=== PATIENT | male | born 1970 | race Caucasian/White ===

== ENCOUNTER 2016-10-31 05:31 | Observation (INO) | payer BC ==
--- NOTE | 2016-10-27 13:54 | Pre-Procedure Note/Attestation ---
Pre-Procedure Note/Attestation Complete Prior to Procedure Planned Procedure: not applicable Procedure Narrative: 1. uvulopalatopharyngoplasty 2. Partial reduction base of tongue Indications for Procedure Pre-Operative Diagnosis: Sleep apnea-unable to tolerate CPAP Attestation I attest that I discussed the nature of the procedure; its benefits; risks and complications; and alternatives (and the risks and benefits of such alternatives ), prior to the procedure, with the patient (or the patient's legal appliance service representative). I attest that, if there was a reasonable possibility of needing a blood transfusion, the patient (or the patient's legal appliance service representative) was given the [facility] standardized written summary, pursuant to the Micky Lul Blood Safety Act ([place] Health and Safety Code # 1645, as amended). I attest that I re-evaluated the patient just prior to the surgery and that there has been no change in the patient's H&P, done by Dr. Hamilton Christian-faxed by my staff 10/27/16 to pre op. I will cosign having already reviewed. ENRIQUE IBRAHIM Oct 27, 2016 13:54
[2016-10-31] VITALS (14 sets, daily range): BP systolic 110–135; BP diastolic 67–88
[~2016-10-31] VITALS: Ht 170.2 cm; Wt 74.8 kg
[~2016-10-31 05:31] MED LIST: CLINDAMYCIN HC300 MG ORAL; VALTREX500 MG ORAL
[2016-10-31] MEDS ORDERED: Dexamethasone 4mg/ml vial IVP ONE (06:00)
[2016-10-31] MEDS ORDERED: ceFAZolin sod 1 GM in D5W 55 ML IV ONE (06:00)
[2016-10-31] MEDS ORDERED: NKM (06:01)
[2016-10-31] MEDS ORDERED: Saline Nasal Gel (Ayr) NASAL ONE (07:14)
[2016-10-31] MEDS ORDERED: Lidocaine 1% 10mg/ml/Epi 0.005mg/ml 30ml vial INJ ONE (07:14)
[2016-10-31] MEDS ORDERED: Bupivacaine w/Epi 0.5% 30ml Vial INJ ONE (07:14)
[2016-10-31] MEDS ORDERED: LR 1000ml ONE (07:30)
[2016-10-31] MEDS ORDERED: fentaNYL 100 mcg/2 mL IV ONE (07:30)
[2016-10-31] MEDS ORDERED: Midazolam 2mg/2ml Inj ONE (07:30)
[2016-10-31] MEDS ORDERED: NS Irrig 1000ml ONE (07:30)
[2016-10-31] MEDS ORDERED: Sterile Water Irrig 1000ml IRRIG ONE (07:30)
[2016-10-31] MEDS ORDERED: Propofol 10mg/ml 20ml IV ONE (07:30)
[2016-10-31] MEDS ORDERED: Dexamethasone 4mg/ml vial ONE (07:30)
[2016-10-31] MEDS ORDERED: Metoclopramide 10mg/2ml Inj IVP PRN (08:15)
[2016-10-31] MEDS ORDERED: HYDROmorphone 1mg/ml Carpuject SUBQ PRN (08:15)
--- NOTE | 2016-10-31 08:21 | Brief Operative Note ---
Immediate Post Operative Note Operative Note Chief Complaint: obstructive sleep apnea Pre-op Diagnosis: Sleep apnea-unable to tolerate CPAP Procedure: Uvulopalatopharyngoplasty Partial reduction base of tongue Post-op Diagnosis: same as pre-op Surgeon: Carlos Paula Home Health Assistant: none Additional Surgeons: none Anesthesiologist: Candice Anesthesia: general Specimen: yes - uvula Complications: none Condition: stable Estimated Blood Loss: minimal Drains: none Packing: none Implant(s) used?: No ENRIQUE IBRAHIM Oct 31, 2016 08:21
[2016-10-31] MEDS ORDERED: LR 1000ml 1,000 ML IVLG SCH (08:24)
--- NOTE | 2016-10-31 08:27 | Immediate Post-Op Evaluation ---
Immediate Post-Op Evalulation Immediate Post-Op Evalulation Procedure: Uvulopalatopharyngoplasty Date of Evaluation: Oct 31, 2016 Time of Evaluation: 08:32 IV Fluids: 1450 Estimated Blood Loss: 30 Blood Pressure Systolic: 121 Blood Pressure Diastolic: 69 Pulse Rate: 88 Respiratory Rate: 14 O2 Sat by Pulse Oximetry: 98 Temperature (Fahrenheit): 98.0 Pain Score (1-10): 0 Nausea: No Vomiting: No Complications No complication Patient Status: reacts, patent, none Hydration Status: adequate Drug: Ancef Given Within 1 Hr of Incision: Yes Time Given: 07:50 VALENTE GORDON M.D. Oct 31, 2016 08:27
[2016-10-31] MEDS ORDERED: LORazepam Inj 2mg/ml 1ml IV PRN (08:30)
[2016-10-31] MEDS ORDERED: Hydromorphone 0.5mg/0.5ml inj IVP PRN (08:30)
[2016-10-31] MEDS ORDERED: LR 1000ml 1,000 ML IV SCH (08:30)
--- NOTE | 2016-10-31 08:30 | Anethesia Preoperative Eval ---
Anesthesia Pre-op PMH/ROS General Date of Evaluation: Oct 31, 2016 Time of Evaluation: 07:30 Anesthesiologist: Candice ASA Score: ASA 2 Mallampati Score Class I : Soft palate, uvula, fauces, pillars visible Class II: Soft palate, uvula, fauces visible Class III: Soft palate, base of uvula visible Class IV: Only hard plate visible Mallampati Classification: Class III Surgeon: Mark Diagnosis: Hypertrophy base pallet Surgical Procedure: Uvulopalatopharyngoplasty Allergies: Coded Allergies: No Known Allergies (Unverified , 04/12/15) Medications: see eMAR Past Medical History Cardiovascular: Denies: CAD, HTN, MT, arrhythmia, other, valve dz Pulmonary: Reports: LEANA, Denies: COPD, asthma, other Gastrointestinal/Genitourinary: Denies: CRI, ESRD, GERD, other Neurologic/Psychiatric: Denies: CVA, TIA, dementia, depression/anxiety, other Endocrine: Denies: DM, hypothyroidism, other, steroids HEENT: Denies: [place] (L), [place] (R), cataract (L), cataract (R), glaucoma, other Hematology/Immune: Denies: DVT, anemia, bleeding disorder, other Musculoskeletal/Integumentary: Denies: DDD, DJD, OA, RA, edema, other PMH Narrative: LEANA, PSxH Narrative: Rhinoplasty, fasciotomy hand Anesthesia Pre-op Phys. Exam Physician Exam Last Vital Signs Date Time Temp Pulse Resp B/P Pulse Ox O2 Delivery O2 Flow Rate FiO2 10/31/16 06:02 98.4 61 18 120/80 99 Room Air Constitutional: NAD Neurologic: CN 2-12 intact Cardiovascular: RRR, no M/R/G Respiratory: CTA Gastrointestinal: S/NT/ND Airway Exam Mallampati Score: Class III MO: full ROM: full Teeth: intact Anesthesia Pre-op A/P Labs Wnl Risk Assessment & Plan Assessment: Healthy male with LEANA Plan: GA, LMA Status Change Before Surgery: No Pre-Antibiotics Drug: Ancef Given Within 1 Hr of Incision: Yes Time Given: 07:50 VALENTE GORDON M.D. Oct 31, 2016 08:30
[2016-10-31] MEDS ORDERED: NORCO 5-325 TA1 EAC1 ORAL (08:49)
--- NOTE | 2016-10-31 08:50 | Discharge Instructions ---
Discharge Instructions Discharge Instructions Diet: regular Resume Normal Activity?: Yes Pneumonia Vaccine: pt refused vaccine Influenza Vaccine (Jun to Nov): pt refused vaccine Follow Up Orders pt has printed instructions I gave him at his pre op visit in my office last week along with his post op meds-Amoxicillin and [place] Return to Work/School on: Nov 14, 2016 Special Instructions in printed instructins given to pt. For Surgical Patients Dressing Care: keep dry and clean May shower: Yes For Congestive Heart Failure Reminder Report to your physician any weight gain of 5 pounds or more in one week. ENRIQUE IBRAHIM Oct 31, 2016 08:50
--- NOTE | 2016-10-31 12:38 | Operative Note - Dictated ---
SURGEON: Sixto Flores M.D. RENEWABLE ENERGY TRADER: None. ANESTHESIOLOGIST: Micky Harvey M.D. ANESTHESIA: LMA general anesthesia and 7 cubic centimeters 1% lidocaine 1000 epinephrine injected in the soft palate and at the base of tongue. INDICATION FOR SURGERY: The patient with obstructive sleep apnea for UP 3 and partial reduction at the base of the tongue. PREOPERATIVE DIAGNOSES: 1. Hypertrophied at the base of tongue and the uvula. 2. History of knee and soft palate. POSTOPERATIVE DIAGNOSES: 1. Hypertrophied at the base of tongue and the uvula. 2. History of knee and soft palate. PROCEDURE: 1. Uvulopalatopharyngoplasty. 2. Partial reduction at the base of tongue with radiofrequency. TECHNIQUE: The patient prepped and draped in the usual manner via LMA general anesthesia. Time-out was performed. All agreed as to the procedure and equipment are required. Initially soft palate uvula was removed after stitch was placed at the base. Radiofrequency wave setting of 6 x 10 seconds after coating with saline gel x3 midline in 1 cm off the midline of the soft palate. I then proceeded to also having injected of the tongue with a lidocaine epinephrine mixture above then went to radiofrequency wave again setting of 6, 10 seconds each time covered with saline gel 1 cm lateral to the either side of the midline of the tongue starting 1 cm posterior to the circumvallate papillae 1 cm anterior in the third set of to 2 cm anterior. Sponge and needle count was correct. EBL: Of 3 cubic centimeters. COUNTS: None. DRAINS: None. The patient were alert and stable in recovery room. 30 minutes later, it is tongue moves in all directions. Sixto Flores M.D. : LAURA JOB#: [id number] CC:
[2016-10-31] MEDS: Amoxicillin 500mg cap ORAL SCH (17:35)
[2016-10-31] MEDS: Norco 5mg/325mg tab ORAL PRN ×2 (17:36→21:50)
[2016-10-31] MEDS: Dexamethasone 4mg/ml vial IVP SCH (17:38)
[2016-11-01] VITALS: BP 114/66
[2016-11-01] MEDS: Dexamethasone 4mg/ml vial IVP SCH ×2 (00:08→07:57)
[2016-11-01] MEDS: Amoxicillin 500mg cap ORAL SCH ×2 (00:09→07:56)
[2016-11-01 04:00] VITALS: BP 114/78
[2016-11-01] MEDS: Norco 5mg/325mg tab ORAL PRN (06:33)
[2016-11-01 08:00] VITALS: BP 113/63
[2016-11-01 14:12] VITALS: BP 120/70
--- NOTE | 2016-11-01 14:12 | 48 Hour Post Anesthesia Eval ---
Post Anesthesia Evaluation Procedure: Uvulopalatopharyngoplasty Date of Evaluation: Nov 01, 2016 Time of Evaluation: 14:11 Blood Pressure Systolic: 120 0: 70 Pulse Rate: 90 Respiratory Rate: 20 Temperature (Fahrenheit): 97 O2 Sat by Pulse Oximetry: 98 Airway: patent Nausea: No Vomiting: No Pain Intensity: 2 Hydration Status: adequate Cardiopulmonary Status: stable Mental Status/LOC: patient returned to baseline Follow-up Care/Observations: na Post-Anesthesia Complications: na Follow-up care needed: N/A STEWART BROOKE M.D. Nov 01, 2016 14:12
== END 2016-11-01 10:00 | disposition home or self-care (01) ==
LOC: SUR 05:31 → 3E 10:00
DX: K13.79 Other lesions of oral mucosa (principal); K14.8 Other diseases of tongue; G47.33 Obstructive sleep apnea (adult) (pediatric)
CPT/HCPCS: 41530; 42145; 94760; 96372; G0378; G0379; J0690; J1100; J1170; J2250; J2405; J2704; J3010; J7120; 94003; 94150